=== PATIENT | female | born 1940 | race Caucasian/White ===

== ENCOUNTER 2019-06-09 20:27 | Emergency (ER) | payer OTHER ==
[2019-06-09] MEDS ORDERED: IBUPROFEN 200 MG TAB PO ONE (22:35)
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
[2019-06-10 00:52] VITALS: BP 182/65; TEMP 97.9; O2SAT 98
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
== END 2019-06-09 23:28 | disposition home or self-care (01) ==
LOC: ER 20:27
DX: S16.1XXA Strain of muscle, fascia and tendon at neck level, initial encounter (principal); S20.211A Contusion of right front wall of thorax, initial encounter; V49.9XXA Car occupant (driver) (passenger) injured in unspecified traffic accident, initial encounter
CPT/HCPCS: 71250; 72125; 99283

== ENCOUNTER 2019-07-23 03:01 | Emergency (ER) | payer OTHER ==
[2019-07-23 03:52] LABS: Absolute Lymphocytes (CBC) 1.3 K/uL (0.7-4.9); Basophils % 0.9 % (0-1.3); Lymphocytes % 23.3 % (15.3-44.8); MPV 8.8 fL (7.6-11.3); RBC Red Blood Cell Count 4.16 M/uL (3.86-4.86)
[2019-07-23 04:08] LABS: BUN Blood Urea Nitrogen 24 mg/dL (7-18); Bicarbonate 27 mmol/L (21-32); Glucose Level 111 mg/dL (74-106); Sodium Level 144 mmol/L (136-145); Troponin (Emerg Dept Use Only) < 0.02 ng/mL (0.0-0.045)
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
--- NOTE | 2019-07-23 04:52 | EDPHYS ---
Physician Documentation [facility] Name: Gregoria Elizabeth Age: 79 yrs Sex: Female : 1940 Arrival Date: 07/23/2019 Time: 03:03 Bed 16 Private MD: ED Physician Wilner Galeano HPI: 07/23 04:41 This 79 yrs old Female presents to ER via EMS with complaints of Irregular gs Pulse. 04:41 The patient presents with a history of irregular heart beat, heart racing. Context: The gs symptoms occur at rest. Onset: The symptoms/episode began/occurred acutely, just prior to arrival. Duration: The patient or guardian reports a single episode, that is now resolved, that lasted 10 minute(s). Modifying factors: The symptoms are aggravated by nothing. The symptoms are alleviated by nothing. Associated signs and symptoms: Pertinent negatives: chest pain, SOB, syncope. Severity of symptoms: At their worst the symptoms were severe in the emergency department the symptoms have resolved. The patient has experienced similar episodes in the past, a few times. Historical: - Allergies: 03:44 Haldol; aa1 - Home Meds: 03:44 losartan 50 mg oral tab [Active]; Metoprolol Tartrate Oral [Active]; Xarelto oral oral aa1 [Active]; doxazosin oral oral [Active]; - PMHx: 03:44 High Cholesterol; Hypertension; Atrial Fib; aa1 - PSHx: 03:44 Appendectomy; Hysterectomy; aa1 - Immunization history:: Flu vaccine is not up to date. . - Social history:: Smoking status: Patient/guardian denies using tobacco. - Ebola Screening: : No symptoms or risks identified at this time. ROS: 04:41 All other systems are negative. gs Exam: 04:41 Head/Face: Normocephalic, atraumatic. Eyes: Pupils equal round and reactive to light, gs extra-ocular motions intact. Lids and lashes normal. Conjunctiva and sclera are non-icteric and not injected. Cornea within normal limits. Periorbital areas with no swelling, redness, or edema. ENT: Nares patent. No nasal discharge, no septal abnormalities noted. Tympanic membranes are normal and external auditory canals are clear. Oropharynx with no redness, swelling, or masses, exudates, or evidence of obstruction, uvula midline. Mucous membranes moist. Neck: Trachea midline, no thyromegaly or masses palpated, and no cervical lymphadenopathy. Supple, full range of motion without nuchal rigidity, or vertebral point tenderness. No Meningismus. Chest/axilla: Normal chest wall appearance and motion. Nontender with no deformity. No lesions are appreciated. Cardiovascular: Regular rate and rhythm with a normal S1 and S2. No gallops, murmurs, or rubs. Normal PMI, no JVD. No pulse deficits. Respiratory: Lungs have equal breath sounds bilaterally, clear to auscultation and percussion. No rales, rhonchi or wheezes noted. No increased work of breathing, no retractions or nasal flaring. Abdomen/GI: Soft, non-tender, with normal bowel sounds. No distension or tympany. No guarding or rebound. No evidence of tenderness throughout. Back: No spinal tenderness. No costovertebral tenderness. Full range of motion. Skin: Warm, dry with normal turgor. Normal color with no rashes, no lesions, and no evidence of cellulitis. MS/ Extremity: Pulses equal, no cyanosis. Neurovascular intact. Full, normal range of motion. Neuro: Awake and alert, GCS 15, oriented to person, place, time, and situation. Cranial nerves II-XII grossly intact. Motor strength 5/5 in all extremities. Sensory grossly intact. Cerebellar exam normal. Normal gait. 04:41 Constitutional: The patient appears alert, awake. 04:41 ECG was reviewed by the Attending Physician. Vital Signs: 03:05 BP 153 / 73; Pulse 81; Resp 18; Temp 98.2(O); Pulse Ox 100% on R/A; Weight 121.11 kg; aa1 Height 5 ft. 3 in. (160.02 cm); Pain 0/10; 04:00 BP 142 / 65; Pulse 77; Resp 18; Pulse Ox 98% on R/A; Pain 0/10; aa1 05:00 BP 130 / 71; Pulse 73; Resp 16; Pulse Ox 98% on R/A; Pain 0/10; aa1 03:05 Body Mass Index 47.30 (121.11 kg, 160.02 cm) aa1 MDM: 03:31 Patient medically screened. 04:41 Differential diagnosis: arrythmia. Data reviewed: vital signs, nurses notes, lab test gs result(s), EKG. 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 Response to treatment: the patient's symptoms have resolved after treatment. 07/23 03:33 Order name: CBC with Diff 07/23 03:33 Order name: Basic Metabolic Panel 07/23 03:33 Order name: Troponin (emerg Dept Use Only) 07/23 03:56 Order name: CBC with Automated Diff; Complete Time: 04:39 EDMS 07/23 04:08 Order name: Basic Metabolic Panel; Complete Time: 04:39 EDMS 07/23 04:08 Order name: Troponin (Emerg Dept Use Only); Complete Time: 04:39 EDMS 07/23 03:33 Order name: EKG - Nurse/Tech; Complete Time: 03:53 gs EC:41 Rate is 58 beats/min. Rhythm is regular. WV interval is normal. QRS interval is normal. gs T waves are Normal. No ST changes noted. Clinical impression: Abnormal EKG without significant change. Interpreted by me. Administered Medications: No medications were administered Disposition: 07/23/19 04:45 Discharged to Home. Impression: Palpitations, Paroxysmal atrial fibrillation. - Condition is Stable. - Discharge Instructions: Atrial Fibrillation, Palpitations. - Medication Reconciliation Form, Thank You Letter, Antibiotic Education, Prescription Opioid Use form. - Follow up: Abimael Leiva MD; When: 2 - 3 days; Reason: Re-evaluation by your physician. Signatures: Dispatcher [employer] Court Samuel RN RN aa1 Wilner Galeano MD MD gs Corrections: (The following items were deleted from the chart) 05:24 04:45 07/23/2019 04:45 Discharged to Home. Impression: Palpitations; Paroxysmal atrial aa1 fibrillation. Condition is Stable. Forms are Medication Reconciliation Form, Thank You Letter, Antibiotic Education, Prescription Opioid Use. Follow up: Abimael Leiva; When: 2 - 3 days; Reason: Re-evaluation by your physician. gs
[2019-07-23 05:39] VITALS: TEMP 98.2
[2019-07-23 05:40] VITALS: O2SAT 98
[2019-07-23 05:41] VITALS: BP 130/71
--- NOTE | 2019-07-25 08:13 | EKG ---
Test Date: 2019-07-23 Test Time: 03:47:21 Receiving Operator: DILAN MEASUREMENT RESULTS: Intervals: Rate: 58 CA: 186 QRSD: 96 QT: 412 QTc: 404 Jane [place]: P: 34 CA: 186 QRS: 28 T: 18 INTERPRETIVE STATEMENTS: Sinus bradycardia Cannot rule out Anterior infarct, age undetermined Abnormal ECG Compared to ECG 11/20/2016 18:01:50 Myocardial infarct finding now present Sinus rhythm no longer present Ventricular premature complex(es) no longer present Electronically Signed On 07-25-19 08:07:46 CDT by Abimael Leiva
== END 2019-07-23 05:24 | disposition home or self-care (01) ==
LOC: ER 03:01
DX: I48.0 Paroxysmal atrial fibrillation (principal); I10 Essential (primary) hypertension; E78.00 Pure hypercholesterolemia, unspecified
CPT/HCPCS: 36415; 80048; 84484; 85025; 93005; 99284

== ENCOUNTER 2019-09-03 11:31 | Emergency (ER) | payer OTHER ==
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
[2019-09-03 14:13] VITALS: TEMP 98.2
[2019-09-03 14:14] VITALS: BP 168/97; O2SAT 100
== END 2019-09-03 13:38 | disposition home or self-care (01) ==
LOC: ER 11:31
DX: S13.4XXA Sprain of ligaments of cervical spine, initial encounter (principal); V49.40XA Driver injured in collision with unspecified motor vehicles in traffic accident, initial encounter; Z79.01 Long term (current) use of anticoagulants; Z88.5 Allergy status to narcotic agent; I10 Essential (primary) hypertension; E78.00 Pure hypercholesterolemia, unspecified; I48.91 Unspecified atrial fibrillation
CPT/HCPCS: 70450; 72125; 99283

== ENCOUNTER 2019-09-17 12:10 | Emergency (ER) | payer OTHER ==
--- NOTE | 2019-09-17 12:43 | EDPHYS ---
Physician Documentation [facility] Name: Gregoria Elizabeth Age: 79 yrs Sex: Female : 1940 Arrival Date: 09/17/2019 Time: 12:12 Bed 14 Private MD: Mac Campbell ED Physician Dixon Morton HPI: 09/17 12:41 This 79 yrs old Female presents to ER via Ambulatory with complaints of Nose jmm Bleed. 12:41 The patient presents with a nose bleed. Onset: The symptoms/episode began/occurred jmm acutely. Modifying factors: The symptoms are alleviated by nothing. the symptoms are aggravated by nothing. This is a 79 year old female with a history of atrial fibrillation, htn that presents to the ED with complaints of nose bleed which occurred spontaneously around 10 am. Nose bleed has now resolved. Patient states having a mild cough over the past week. Denies fever, denies shortness of breath, denies weakness. . Historical: - Allergies: 12:51 Haldol; ch - Home Meds: 12:51 Xarelto Oral [Active]; valsartan-hydrochlorothiazide 160-25 mg Oral tab 1 tab once ch daily [Active]; Metoprolol Tartrate Oral [Active]; losartan 50 mg Oral tab [Active]; levothyroxine 50 mcg tab 1 tab once daily [Active]; hydrochlorothiazide 25 mg Oral tab 1 tab for as needed for edema [Active]; doxazosin Oral [Active]; - PMHx: 12:51 Atrial Fib; High Cholesterol; Hypertension; ch - PSHx: 12:51 Hysterectomy; ch - Immunization history:: Adult Immunizations up to date. - Social history:: Smoking status: Patient/guardian denies using tobacco. - Ebola Screening: : Patient negative for fever greater than or equal to 101.5 degrees Fahrenheit, and additional compatible Ebola Virus Disease symptoms Patient denies exposure to infectious person Patient denies travel to an Ebola-affected area in the 21 days before illness onset No symptoms or risks identified at this time. ROS: 12:41 Constitutional: Negative for fever, chills, and weight loss. jmm 12:41 Neck: Negative for injury, pain, and swelling, Cardiovascular: Negative for chest pain, palpitations, and edema, Respiratory: Negative for shortness of breath, cough, wheezing, and pleuritic chest pain, Abdomen/GI: Negative for abdominal pain, nausea, vomiting, diarrhea, and constipation, Neuro: Negative for headache, weakness, numbness, tingling, and seizure. 12:41 ENT: Positive for nose bleed. 12:41 All other systems are negative. Exam: 12:41 Constitutional: This is a well developed, well nourished patient who is awake, alert, jmm and in no acute distress. Head/Face: atraumatic. Eyes: EOMI, no conjunctival erythema appreciated 12:41 Neck: Trachea midline, Supple Chest/axilla: Normal chest wall appearance and motion. Cardiovascular: Regular rate and rhythm. No edema appreciated Respiratory: Normal respirations, no respiratory distress appreciated Abdomen/GI: Non distended, soft Back: Normal ROM Skin: General appearance color normal MS/ Extremity: Moves all extremities, no obvious deformities appreciated, no edema noted to the lower extremities Neuro: Awake and alert, normal gait Psych: Behavior is normal, Mood is normal, Patient is cooperative and pleasant 12:41 ENT: Nose: Nasal mucosa: Dried blood. Examination of the other nostril shows no obvious abnormality, Posterior pharynx: is normal, no blood. Vital Signs: 12:51 BP 174 / 78; Pulse 84; Resp 16; Temp 98.8; Pulse Ox 99% on R/A; Pain 0/10; ch 13:17 BP 168 / 84; Pulse 72; Resp 16; Temp 98.8; Pulse Ox 99% on R/A; Pain 0/10; ch MDM: 12:41 Patient medically screened. [facility] 12:41 Data reviewed: vital signs, nurses notes. Counseling: I had a detailed discussion with [facility] the patient and/or guardian regarding: the historical points, exam findings, and any diagnostic results supporting the discharge/admit diagnosis, the need for outpatient follow up, to return to the emergency department if symptoms worsen or persist or if there are any questions or concerns that arise at home. ED course: Patient given education on nosebleeds. Patient is not taking anticoagulants. Patient given strict return precautions. patient understood and agrees with the plan of care. . Administered Medications: No medications were administered Disposition: 15:08 Co-signature as Attending Physician, Dixon Morton MD I agree with the assessment and kdr plan of care. Disposition: 09/17/19 12:42 Discharged to Home. Impression: Epistaxis. - Condition is Stable. - Discharge Instructions: Nosebleed, Adult. - Prescriptions for Saline Nasal - spray 1 spray by INTRANASAL route every 4-6 hours; 1 bottle. - Medication Reconciliation Form, Thank You Letter, Antibiotic Education, Prescription Opioid Use form. - Follow up: Penelope Wheeler MD; When: 2 - 3 days; Reason: Recheck today's complaints, Continuance of care, Re-evaluation by your physician. Signatures: Sudha Rain, JT RN ch Dixon Morton MD MD [facility] Zion Najera PA PA jmm Corrections: (The following items were deleted from the chart) 13:19 12:42 09/17/2019 12:42 Discharged to Home. Impression: Epistaxis. Condition is Stable. ch Forms are Medication Reconciliation Form, Thank You Letter, Antibiotic Education, Prescription Opioid Use. Follow up: Penelope Wheeler; When: 2 - 3 days; Reason: Recheck today's complaints, Continuance of care, Re-evaluation by your physician. hodan
--- NOTE | 2019-09-17 13:20 | ER ---
Nurse's Notes [facility] Name: Gregoria Elizabeth Age: 79 yrs Sex: Female : 1940 Arrival Date: 09/17/2019 Time: 12:12 Bed 14 Private MD: Mac Campbell Diagnosis: Epistaxis Presentation: 09/17 12:49 Presenting complaint: Patient states: Nose bleed today. its stopped now. Transition of care: patient was not received from another setting of care. Onset of symptoms. Risk Assessment: Do you want to hurt yourself or someone else? Patient reports no desire to harm self or others. Initial Sepsis Screen: Does the patient meet any 2 criteria? No. Patient's initial sepsis screen is negative. Does the patient have a suspected source of infection? No. Patient's initial sepsis screen is negative. Care prior to arrival: None. 12:49 Method Of Arrival: Ambulatory 12:49 Acuity: EMANUEL 5 Triage Assessment: 12:51 General: Appears in no apparent distress. comfortable, Behavior is calm, cooperative, ch appropriate for age. Pain: Denies pain. EENT: Nares are clear. Neuro: No deficits noted. Respiratory: No deficits noted. Historical: - Allergies: 12:51 Haldol; - Home Meds: 12:51 Xarelto Oral [Active]; valsartan-hydrochlorothiazide 160-25 mg Oral tab 1 tab once ch daily [Active]; Metoprolol Tartrate Oral [Active]; losartan 50 mg Oral tab [Active]; levothyroxine 50 mcg tab 1 tab once daily [Active]; hydrochlorothiazide 25 mg Oral tab 1 tab for as needed for edema [Active]; doxazosin Oral [Active]; - PMHx: 12:51 Atrial Fib; High Cholesterol; Hypertension; - PSHx: 12:51 Hysterectomy; - Immunization history:: Adult Immunizations up to date. - Social history:: Smoking status: Patient/guardian denies using tobacco. - Ebola Screening: : Patient negative for fever greater than or equal to 101.5 degrees Fahrenheit, and additional compatible Ebola Virus Disease symptoms Patient denies exposure to infectious person Patient denies travel to an Ebola-affected area in the 21 days before illness onset No symptoms or risks identified at this time. Screenin:53 Abuse screen: Denies threats or abuse. Denies injuries from another. Nutritional ch screening: No deficits noted. Tuberculosis screening: No symptoms or risk factors identified. Fall Risk None identified. Assessment: 12:53 Reassessment: Patient appears in no apparent distress at this time. No changes from previously documented assessment. Patient and/or family updated on plan of care and expected duration. Pain level reassessed. Patient is alert, oriented x 3, equal unlabored respirations, skin warm/dry/pink. Zion in room to discuss plan of care again with pt and family. 13:17 Reassessment: Patient appears in no apparent distress at this time. Patient and/or ch family updated on plan of care and expected duration. Pain level reassessed. Patient is alert, oriented x 3, equal unlabored respirations, skin warm/dry/pink. Reassessment: Zion has extensively gone over plan of care and dx with pt and family due to husbands concerns. pt to be discharged now. General: Appears in no apparent distress. comfortable, Behavior is calm, cooperative, appropriate for age. Pain: Denies pain. Vital Signs: 12:51 BP 174 / 78; Pulse 84; Resp 16; Temp 98.8; Pulse Ox 99% on R/A; Pain 0/10; ch 13:17 BP 168 / 84; Pulse 72; Resp 16; Temp 98.8; Pulse Ox 99% on R/A; Pain 0/10; ch ED Course: 12:12 Patient arrived in ED. ag5 12:13 Mac Campbell DO is Private Physician. [facility] 12:25 Zion Najera PA is PHCP. [facility] 12:25 Dixon Morton MD is Attending Physician. [facility] 12:30 Arm band placed on left wrist. Patient placed in an exam room, on a stretcher, on pulse ch oximetry. 12:42 Penelope Wheeler MD is Referral Physician. [facility] 12:49 Sudha Rain, JT is Primary Nurse. 12:50 Triage completed. 12:53 No apparent distress. Resting quietly. ch 12:53 Patient has correct armband on for positive identification. Bed in low position. Call light in reach. Side rails up X 1. 12:53 No provider procedures requiring assistance completed. Patient did not have IV access ch during this emergency room visit. Administered Medications: No medications were administered Outcome: 12:42 Discharge ordered by . hodan 13:17 Discharged to home via wheelchair, with family. 13:17 Condition: stable 13:17 Discharge instructions given to patient, family, Instructed on discharge instructions, follow up and referral plans. medication usage, Demonstrated understanding of instructions, follow-up care, medications, Prescriptions given X 1. 13:19 Patient left the ED. Signatures: Sudha Rain RN RN Zion Najera PA PA jmm Gaskin, Ajare ag5
[2019-09-17 13:24] VITALS: TEMP 98.8; O2SAT 99
[2019-09-17 13:26] VITALS: BP 168/84
== END 2019-09-17 13:19 | disposition home or self-care (01) ==
LOC: ER 12:10
DX: R04.0 Epistaxis (principal); I10 Essential (primary) hypertension; I48.91 Unspecified atrial fibrillation; E78.00 Pure hypercholesterolemia, unspecified; Z79.01 Long term (current) use of anticoagulants; Z88.5 Allergy status to narcotic agent
CPT/HCPCS: 99283

== ENCOUNTER 2023-08-14 11:48 | Observation (INO) | payer OTHER ==
--- OUTSIDE RECORDS SUMMARY | 2023-08-14 11:50 | XMS REPORT | Continuity of Care Document ---
:1940 Author Organization [facility] t Address [address] [place] [address] [place] [id number] Care Team Providers Name Role Phone Marianela Acevedo Attending Clinician Unavailable Edilia Estrella Attending Clinician Unavailable Problems This patient has no known problems. Allergies, Adverse Reactions, Alerts This patient has no known allergies or adverse reactions. Medications This patient has no known medications. Procedures This patient has no known procedures. Encounters Start End Encounter Admission Attending Care Care Encounter Source Date/Time Date/Time Type Type Clinicians Facility Department ID 2023-04-03 Outpatient Curtis, STLMLC STLC [id number] Common 15:35:00 Marianela [id number] [facility] 2022-08-01 Outpatient Curtis, STZEVLC STLC [id number] Common 10:24:00 Marianela [facility] 2022-07-04 Outpatient Curtis, STLMLC STLMLC [id number] Common 13:24:00 Marianela [facility] 2021-12-19 Outpatient Curtis, STZEVLC STLMLC [id number] Common 14:31:50 Marianela [facility] 2021-12-19 Outpatient Curtis, STZEVLC STLMLC [id number] Common 12:17:18 Marianela [id number] [facility] 2021-12-19 Outpatient STZEVLC STLMLC [id number] Common 12:17:12 [id number] [facility] 2021-12-19 Outpatient Sameer, STZEVLC STLMLC [id number] Common 11:58:09 Edilia [id number] [facility] 2021-12-19 Outpatient Sameer, STLMLC STLC [id number] Common 11:57:42 Edilia [id number] [facility] 2021-12-19 Outpatient Sameer [facility] [id number] Common 11:32:51 Edilia [id number] [facility] 2021-12-19 Outpatient Sameer [facility] [id number] Common 11:12:38 Edilia [id number] [facility] 2021-12-19 Outpatient Sameer [facility] [id number] Common 11:10:10 Edilia [id number] [facility] Results This patient has no known results.
[2023-08-14 12:24] LABS: Absolute Lymphocytes (CBC) 1.3 K/uL (0.7-4.9); Hematocrit 37.5 % (36.0-45.0); Lymphocytes % 15.6 % (15.3-44.8); MCV 84.2 fL (80-100); MPV 7.9 fL (7.6-11.3); Platelets 189 thou/uL (152-406); RBC Red Blood Cell Count 4.45 M/uL (3.86-4.86)
--- NOTE | 2023-08-14 12:43 | RAD REPORT ---
[facility] CLINICAL HISTORY: PALPITATIONS COMPARISON: Chest Single View dated 11/20/2016; CHEST SINGLE VIEW dated 02/23/2015; CHEST SINGLE VIEW dated 03/25/2013; CHEST PA AND LAT 2 VIEW dated 09/21/2012 TECHNIQUE: Portable AP view of the chest. FINDINGS: Stable interstitial prominence suggests mild central congestion/CHF. Stable atelectasis ve rsus mild airspace opacification in the left lung base. No pneumothorax or effusion. Mild cardiomega ly. Mediastinal contours are unremarkable. IMPRESSION: Stable findings, as above.
[2023-08-14 12:46] LABS: AST/SGOT 10 U/L (15-37); BUN Blood Urea Nitrogen 19 mg/dL (7-18); Bicarbonate 25 mEq/L (21-32); Glomerular Filtration Rate 63 ml/min (=/>90); Glucose Level 106 mg/dL (74-106); Potassium 3.5 mEq/L (3.5-5.1); Sodium Level 141 mEq/L (136-145)
[2023-08-14 12:47] LABS: ALT/SGPT 16 U/L (13-56); Albumin 3.1 g/dL (3.4-5.0); Alkaline Phosphatase 132 U/L (45-117); Bilirubin Total 0.3 mg/dL (0.2-1.0); Magnesium 2.2 mg/dL (1.6-2.4); NT PRO-BNP 1395 pg/mL (<450); Protein, Total 7.4 g/dL (6.4-8.2); Troponin High Sensitivity 57.9 pg/mL (<58.9)
[2023-08-14 13:10] LABS: Bilirubin Direct < 0.1 mg/dL (0-0.2); Bilirubin Indirect, Calculated ND mg/dL (0.2-0.8)
[2023-08-14] MEDS ORDERED: METOPROLOL TARTRATE 5 MG/5 ML INJ IV ONE (13:25)
--- NOTE | 2023-08-14 15:04 | EDPHYS ---
Physician Documentation [facility] Name: Gregoria Elizabeth Age: 83 yrs Sex: Female : 1940 Arrival Date: 08/14/2023 Time: 11:48 Bed 11 Private MD: ED Physician Evgeny Jung HPI: 08/14 12:10 This 83 yrs old Female presents to ER via Unassigned with complaints of Palpitations. rt 12:10 Patient presents to the ED with palpitations. Noticed heart racing. Patient first rt noticed this when she went up to go to the bathroom at about 3 AM noting her heart was about 120s. EMS was called in the morning, was found to have heart rate in 150s to 170s, reportedly A-fib with RVR. She was given 30 mg of Cardizem which improved her heart rate. She is asymptomatic currently. Denies any chest pain. Denies any previous history of A-fib. Symptoms are moderate severity, no other aggravating or admitting factors.. Historical: - Allergies: 12:26 Haldol; hb - Home Meds: 12:26 Xarelto Oral [Active]; hydrochlorothiazide 25 mg Oral tab 1 tab for as needed for edema hb [Active]; levothyroxine 50 mcg tab 1 tab once daily [Active]; doxazosin Oral [Active]; losartan 50 mg Oral tab [Active]; Metoprolol Tartrate Oral [Active]; valsartan-hydrochlorothiazide 160-25 mg Oral tab 1 tab once daily [Active]; - PMHx: 12:26 Atrial Fib; High Cholesterol; Hypertension; hb - Immunization history:: Adult Immunizations up to date. - Social history:: Smoking status: Patient denies any tobacco usage or history of. ROS: 12:10 Constitutional: Negative for fever, chills, and weight loss, Respiratory: Negative for rt shortness of breath, cough, wheezing, and pleuritic chest pain, Abdomen/GI: Negative for abdominal pain, nausea, vomiting, diarrhea, and constipation, MS/Extremity: Negative for injury and deformity, Skin: Negative for injury, rash, and discoloration, Neuro: Negative for headache, weakness, numbness, tingling, and seizure, Psych: Negative for depression, anxiety, suicide ideation, homicidal ideation, and hallucinations, 12:10 Cardiovascular: Positive for palpitations, Negative for chest pain, Exam: 12:12 Constitutional: This is a well developed, well nourished patient who is awake, alert, rt and in no acute distress. Head/Face: Normocephalic, atraumatic. Chest/axilla: Normal chest wall appearance and motion. Nontender with no deformity. No lesions are appreciated. Cardiovascular: Regular rate and rhythm with a normal S1 and S2. No gallops, murmurs, or rubs. Normal PMI, no JVD. No pulse deficits. Respiratory: Lungs have equal breath sounds bilaterally, clear to auscultation and percussion. No rales, rhonchi or wheezes noted. No increased work of breathing, no retractions or nasal flaring. Abdomen/GI: Soft, non-tender, with normal bowel sounds. No distension or tympany. No guarding or rebound. No evidence of tenderness throughout. Skin: Warm, dry with normal turgor. Normal color with no rashes, no lesions, and no evidence of cellulitis. MS/ Extremity: Pulses equal, no cyanosis. Neurovascular intact. Full, normal range of motion. Neuro: Awake and alert, GCS 15, oriented to person, place, time, and situation. Cranial nerves II-XII grossly intact. Motor strength 5/5 in all extremities. Sensory grossly intact. Cerebellar exam normal. Normal gait. Psych: Awake, alert, with orientation to person, place and time. Behavior, mood, and affect are within normal limits. 12:25 ECG was reviewed by the Attending Physician. rt Vital Signs: 12:09 BP 134 / 68; Pulse 114; Resp 17; Temp 98.3; Pulse Ox 97% on R/A; Weight 124.74 kg; hb Height 5 ft. 2 in. ; Pain 0/10; 12:48 BP 138 / 80; Pulse 123; Resp 22; Pulse Ox 98% on R/A; hb 13:15 BP 121 / 73; Pulse 110; Resp 18 S; Pulse Ox 99% on R/A; aa5 13:25 BP 118 / 79; Pulse 100; Resp 20 S; Pulse Ox 98% on R/A; aa5 13:47 BP 124 / 60; Pulse 84; Resp 19; Pulse Ox 99% on R/A; hb 14:27 BP 128 / 99; Pulse 94; Resp 20; Pulse Ox 99% on R/A; hb 14:34 BP 170 / 71; Pulse 47; Resp 16; Pulse Ox 98% on R/A; hb 17:05 BP 135 / 86; Pulse 63; Resp 18; Pulse Ox 98% on R/A; cm10 12:09 Body Mass Index 50.30 (124.74 kg, 157.48 cm) hb 12:09 Pain Scale: Adult hb MDM: 11:53 Patient medically screened. rt 15:04 Differential Diagnosis A-fib, dysrhythmia, electrolyte disturbance. Data reviewed: rt vital signs, nurses notes, lab test result(s), EKG, radiologic studies. Consideration of Admission/Observation Patient was admitted/placed on observation. 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 I considered the following discharge prescriptions or medication management in the emergency department Medications were administered in the Emergency Department. See MAR. Independent interpretation of the following test(s) in the Emergency Department X-Ray: My interpretation is No consolidations in interpretation of the x-ray images. Care significantly affected by the following chronic conditions: Hypertension. Counseling: I had a detailed discussion with the patient and/or guardian regarding the historical points, exam findings, and any diagnostic results supporting the discharge/admit diagnosis, lab results, radiology results, the need for further work-up and treatment in the hospital. Response to treatment: the patient's symptoms have markedly improved after treatment. 08/14 11:53 Order name: Basic Metabolic Panel; Complete Time: 13:11 rt 08/14 11:53 Order name: CBC with Diff; Complete Time: 12:50 rt 08/14 11:53 Order name: LFT's; Complete Time: 13:11 rt 08/14 11:53 Order name: Magnesium; Complete Time: 13:11 rt 08/14 11:53 Order name: NT PRO-BNP; Complete Time: 13:11 rt 08/14 11:53 Order name: Troponin HS; Complete Time: 13:11 rt 08/14 15:09 Order name: Urinalysis w/ reflexes EDMS 08/14 11:53 Order name: XRAY Chest (1 view); Complete Time: 12:50 rt 08/14 11:53 Order name: EKG; Complete Time: 11:54 rt 08/14 11:53 Order name: Cardiac monitoring; Complete Time: 12:23 rt 08/14 11:53 Order name: EKG - Nurse/Tech; Complete Time: 12: rt 08/14 11:53 Order name: IV Saline Lock; Complete Time: : rt 08/14 11:53 Order name: Labs collected and sent; Complete Time: rt 08/14 11:53 Order name: O2 Per Protocol; Complete Time: rt 08/14 11:53 Order name: O2 Sat Monitoring; Complete Time: 12: rt EC: Rate is 100 beats/min. Rhythm is irregularly irregular, A fib with Unifocal PVCs, rt Nonspecific ST-T wave changes. QRS interval is normal. QT interval is normal. No Q waves. Administered Medications: 13:15 Drug: Metoprolol IVP 5 mg IVP every 5 minutes; Hold for SBP < 100 or HR < 60. x3 Route: aa5 IVP; Site: right wrist; 13:25 Drug: Metoprolol IVP 5 mg IVP every 5 minutes; Hold for SBP < 100 or HR < 60. x3 Route: aa5 IVP; Site: right wrist; Disposition Summary: 08/14/23 15:03 Hospitalization Ordered Notes: Hospitalization Status: Observation rt Provider: Jassi Olivarez rt Location: Telemetry/MedSurg (observation) rt Condition: Stable rt Problem: new rt Symptoms: have improved rt Bed/Room Type: Standard rt Room Assignment: 426(08/14/23 16:53) ll1 Diagnosis - New onset A-fib with RVR rt Forms: - Medication Reconciliation Form rt - SBAR form rt - Leadership Thank You Letter rt Signatures: Dispatcher [employer] Radha Galaviz RN RN aa5 Janki Manzanares RN RN hb Lewis, Lynsay, RN RN ll1 Evgeny Jung MD MD rt Corrections: (The following items were deleted from the chart) 12:28 12:26 Allergies: haloperidol lactate; hb hb 16:53 15:03 rt ll1
--- NOTE | 2023-08-14 15:04 | ER ---
Nurse's Notes [facility] Name: Gregoria Elizabeth Age: 83 yrs Sex: Female : 1940 Arrival Date: 08/14/2023 Time: 11:48 Bed 11 Private MD: Diagnosis: New onset A-fib with RVR Presentation: 08/14 12:09 Chief complaint: EMS states: palpitations that started last night while ambulating to the bathroom. On scene 12 lead showed A Fib w/ RVR 130s-170s, 110s after Cardizem 30 mg IVP to 18G RFA. Coronavirus screen: At this time, the client does not indicate any symptoms associated with coronavirus-19. Ebola Screen: No symptoms or risks identified at this time. Initial Sepsis Screen: Does the patient meet any 2 criteria? No. Patient's initial sepsis screen is negative. Does the patient have a suspected source of infection? No. Patient's initial sepsis screen is negative. Risk Assessment: Do you want to hurt yourself or someone else? Patient reports no desire to harm self or others. Onset of symptoms was August 14, 2023. 12:09 Method Of Arrival: EMS: [facility] 12:09 Acuity: EMANUEL 3 hb Historical: - Allergies: 12:26 Haldol; hb - Home Meds: 12:26 Xarelto Oral [Active]; hydrochlorothiazide 25 mg Oral tab 1 tab for as needed for edema hb [Active]; levothyroxine 50 mcg tab 1 tab once daily [Active]; doxazosin Oral [Active]; losartan 50 mg Oral tab [Active]; Metoprolol Tartrate Oral [Active]; valsartan-hydrochlorothiazide 160-25 mg Oral tab 1 tab once daily [Active]; - PMHx: 12:26 Atrial Fib; High Cholesterol; Hypertension; hb - Immunization history:: Adult Immunizations up to date. - Social history:: Smoking status: Patient denies any tobacco usage or history of. Screenin:28 [facility] ED Fall Risk Assessment (Adult) Score/Fall Risk Level 3 or more points = High hb Risk Oriented to surroundings, Maintained a safe environment, Educated pt \T\ family on fall prevention, incl call for assistance when getting out of bed, Assessed \T\ reinforced patient's understanding of fall precautions, Provided non-skid footwear. Abuse screen: Denies threats or abuse. Denies injuries from another. Nutritional screening: No deficits noted. Tuberculosis screening: No symptoms or risk factors identified. Assessment: 12:28 General: Appears in no apparent distress. Behavior is calm, cooperative. Pain: Denies hb pain. Neuro: Level of Consciousness is awake, alert, obeys commands, Oriented to person, place, time, situation. Cardiovascular: Patient's skin is warm and dry. Rhythm is atrial fibrillation with rapid ventricular response. Respiratory: Respiratory effort is even, unlabored, Respiratory pattern is regular, symmetrical. GI: No signs and/or symptoms were reported involving the gastrointestinal system. : No signs and/or symptoms were reported regarding the genitourinary system. EENT: No signs and/or symptoms were reported regarding the EENT system. Derm: Skin is pink, warm \T\ dry. Musculoskeletal: No signs and/or symptoms reported regarding the musculoskeletal system. 13:21 Reassessment: Patient appears in no apparent distress at this time. Patient and/or hb family updated on plan of care and expected duration. Pain level reassessed. Patient is alert, oriented x 3, equal unlabored respirations, skin warm/dry/pink. 14:27 Reassessment: Patient appears in no apparent distress at this time. Patient and/or hb family updated on plan of care and expected duration. Pain level reassessed. Patient is alert, oriented x 3, equal unlabored respirations, skin warm/dry/pink. 16:04 Reassessment: No changes from previously documented assessment. Patient and/or family ll1 updated on plan of care and expected duration. Pain level reassessed. Vital Signs: 12:09 BP 134 / 68; Pulse 114; Resp 17; Temp 98.3; Pulse Ox 97% on R/A; Weight 124.74 kg; hb Height 5 ft. 2 in. ; Pain 0/10; 12:48 BP 138 / 80; Pulse 123; Resp 22; Pulse Ox 98% on R/A; hb 13:15 BP 121 / 73; Pulse 110; Resp 18 S; Pulse Ox 99% on R/A; aa5 13:25 BP 118 / 79; Pulse 100; Resp 20 S; Pulse Ox 98% on R/A; aa5 13:47 BP 124 / 60; Pulse 84; Resp 19; Pulse Ox 99% on R/A; hb 14:27 BP 128 / 99; Pulse 94; Resp 20; Pulse Ox 99% on R/A; hb 14:34 BP 170 / 71; Pulse 47; Resp 16; Pulse Ox 98% on R/A; hb 17:05 BP 135 / 86; Pulse 63; Resp 18; Pulse Ox 98% on R/A; cm10 12:09 Body Mass Index 50.30 (124.74 kg, 157.48 cm) hb 12:09 Pain Scale: Adult hb ED Course: 11:50 Patient arrived in ED. aa5 11:53 Evgeny Jung MD is Attending Physician. rt 12:20 Maintain EMS IV. Dressing intact. Good blood return noted. Site clean \T\ dry. Gauge \T\ hb site: 18g RFA. 12:26 Triage completed. hb 12:28 Arm band placed on. hb 12:29 Patient has correct armband on for positive identification. Provided Education on: hb Tests. 12:30 XRAY Chest (1 view) In Process Unspecified. EDMS 12:48 Janki Manzanares, JT is Primary Nurse. hb 15:03 Jassi Olivarez MD is Hospitalizing Provider. rt 17:00 No provider procedures requiring assistance completed. Patient admitted, IV remains in cm10 place. Administered Medications: 13:15 Drug: Metoprolol IVP 5 mg IVP every 5 minutes; Hold for SBP < 100 or HR < 60. x3 Route: aa5 IVP; Site: right wrist; 13:25 Drug: Metoprolol IVP 5 mg IVP every 5 minutes; Hold for SBP < 100 or HR < 60. x3 Route: aa5 IVP; Site: right wrist; Medication: 12:28 VIS not applicable for this client. hb Outcome: 15:03 Decision to Hospitalize by Provider. rt 17:00 Admitted to Med/surg accompanied by tech, via stretcher, room 426, Report called to shon Villegas RN 17:00 Condition: good 17:00 Instructed on the need for admit, 17:27 Patient left the ED. cm10 Signatures: Dispatcher [employer] EDMS Radha Haq RN RN aa5 Janki Manzanares RN RN Ting Cooley RN RN [facility] Evgeny Jung MD MD rt Angle Mejia RN RN 10 Corrections: (The following items were deleted from the chart) 12:28 12:26 Allergies: haloperidol lactate; hb hb
--- NOTE | 2023-08-14 15:25 | P.HP ---
Certification for Inpatient Patient admitted to: Inpatient With expected LOS: <2 Midnights Patient will require the following post-hospital care: None Practitioner: I am a practitioner with admitting privileges, knowledge of patient current condition, hospital course, and medical plan of care. Services: Services provided to patient in accordance with Admission requirements found in Title 42 Section 412.3 of the Code of Federal Regulations Patient History Date of Service: 08/14/23 Reason for admission: A-fib RVR, hypertension, sleep apnea History of Present Illness: This is a 83-year-old female with medical history of hypertension, sleep apnea, hypothyroidism hyperlipidemia presented to the ER with complaints of palpitation. Patient reports that she felt her heart is racing since last night denies chest pain, shortness of breath. She reports that she noticed her heart rate was 120s in the middle of the night. She called the EMS as she found her heart rate at 170s. Patient is asymptomatic at this time, patient denied previous history of A-fib RVR but reports that she felt irregular heartbeats before but not taken any treatments. ED course: Vital signs blood pressure 134/68, pulse 114, respirations 17, temperature 98.3, pulse ox 97% on room air. Heart rate irregularly irregular A-fib with nonspecific STT wave changes. QRS interval is normal. QT interval is normal. No Q waves. Lab report significant for BUN 19 BNP 1395. Chest x-ray shows mild cardiomegaly, mild central congestion/CHF. Stable atelectasis versus mild airspace opacification in the left lung base. General Partner informed. Planning to admit the patient with a diagnosis of A-fib RVR. Allergies haloperidol lactate [From Haldol] Adverse Reaction (Severe, Verified 02/23/13 10:22) PSYCHOSIS/BLINDNESS Home Medications: Valsartan 160 mg PO BID #60 tablet 11/21/16 Doxazosin [Cardura*] 4 mg PO BEDTIME 08/14/23 Metoprolol Tartrate 50 mg PO DAILY 08/14/23 - Past Medical/Surgical History Diabetic: No -: hyperlipidemia -: PVC -: allergies/hay fever -: pneumonia -: lymphedema -: GERD -: HTN -: Arthritis -: Anxiety -: Hysterectomy -: Kidney stent - Family History Father -: Heart disease Mother -: Heart disease, Diabetes Notes: from Alzheimers - Social History Alcohol use: Yes CD- Drugs: No Caffeine use: Yes Review of Systems 10-point ROS is otherwise unremarkable (Denies fever chills weakness) ENT: Unremarkable (Sleep apnea) Respiratory: SOB with Excertion, Other (Sleep apnea do not use CPAP) Cardiovascular: Palpitations (Since last night), Other Gastrointestinal: Other (Denies nausea vomiting abdominal pain diarrhea) Physical Examination - Physical Exam General: Alert, Oriented x3, Cooperative, Mild distress (Reporting feeling uncomfortable) HEENT: Atraumatic, Normocephalic, PERRLA Neck: Supple, 2+ carotid pulse no bruit, JVD not distended Respiratory: Clear to auscultation bilaterally, Diminished (At the bases) Cardiovascular: No edema, Irregular heart rate/rhythm (Heart rate 40 to 50/min) Capillary refill: Brisk Gastrointestinal: Normal bowel sounds, Hypoactive, Soft and benign, Non- distended Musculoskeletal: No clubbing, No swelling, No contractures, No erythema, No tenderness, No warmth Integumentary: No breakdown, No significant lesion, No erythema, No warmth Neurological: Normal gait, Normal speech, Normal strength at 5/5 x4 extr, Normal tone - Studies Laboratory Data (last 24 hrs) 08/14/23 08/14/23 12:18 12:18 WBC 8.40 Hgb 12.3 Hct 37.5 Plt Count 189 Sodium 141 Potassium 3.5 BUN 19 H Creatinine 0.92 Glucose 106 Magnesium 2.2 Total Bilirubin 0.3 AST 10 L ALT 16 Alkaline Phosphatase 132 H Assessment and Plan - Plan Assessment and plan A-fib RVR new onset: Acute, Sleep apnea Hypertension Hypothyroid Hyperlipidemia Assessment and plan A-fib RVR new onset * Acute, patient comes in with complaints of palpitations started last night heart rate went up to 170s, EMS given Cardizem. Patient's heart rate runs between 40-50 still in A-fib. * General Partner Michael referred * Admit the patient to to telemetry * Electrolytes replacement as per protocol Sleep apnea * Chronic, admit the patient to ICU. Okay CPAP at bedtime * Discussed importance of management of sleep apnea Hypertension * Chronic controlled on current medication * Resume home medications Hypothyroid * Chronic on levothyroxine * Resume the current medications, check TSH in the morning Hyperlipidemia * Chronic, controlled current medication * Resume home medications * Check lipid panel in the morning CODE STATUS full code DVT prophylaxis; SCDs Diet heart healthy Discharge Plan: Home Plan to discharge in: 48 Hours - Advance Directives Does patient have a Living Will: No Does patient have a Durable POA for Healthcare: No - Code Status/Comfort Care Code Status Assessed: Yes (Full code) Code Status: Full Code Physician Review: Patient Assessed, Agree with Above Assessment and Plan Critical Care: Yes
[2023-08-14] MEDS ORDERED: ACETAMINOPHEN 500 MG TAB PO PRN (17:32)
[2023-08-14] MEDS ORDERED: ONDANSETRON 4 MG/2 ML VIAL IV PRN (17:32)
[2023-08-14 18:49] VITALS: BMI 50.5
[2023-08-14] MEDS: ENOXAPARIN 40 MG/0.4 ML SQ SCH (18:58)
[2023-08-14 20:02] LABS: Thyroid Stimulating Hormone 4.02 uIU/mL (0.358-3.740)
[2023-08-14 20:35] VITALS: O2SAT 95
[2023-08-14 21:19] LABS: Specific Gravity 1.027 (1.005-1.030); Urine Bacteria <20 /HPF (<20); Urine Bilirubin NEGATIVE (Negative); Urine Blood Negative (Negative); Urine Clarity Turbid (Clear); Urine Color Yellow (Yellow); Urine Glucose NEGATIVE (Negative); Urine Mucus Slight /HPF (None Seen); Urine Protein TRACE (Negative); Urine Urobilinogen Normal (Normal)
[2023-08-15 05:15] VITALS: TEMP 98.9
[2023-08-15] MEDS: ENOXAPARIN 40 MG/0.4 ML SQ SCH (08:55)
[2023-08-15 09:11] LABS: Absolute Lymphocytes (CBC) 1.5 K/uL (0.7-4.9); Hematocrit 32.3 % (36.0-45.0); Lymphocytes % 19.5 % (15.3-44.8); MCV 84.2 fL (80-100); MPV 7.9 fL (7.6-11.3); Platelets 177 thou/uL (152-406); RBC Red Blood Cell Count 3.84 M/uL (3.86-4.86)
[2023-08-15 09:38] LABS: Magnesium 2.3 mg/dL (1.6-2.4); Phosphorus 2.4 mg/dL (2.5-4.9); Potassium 3.7 mEq/L (3.5-5.1)
[2023-08-15 12:21] VITALS: BP 153/62
== END 2023-08-15 13:15 | disposition home or self-care (01) ==
LOC: ER 11:48 → INTOOBSV 15:02 → ERHOLD 15:02 → 4TH 17:14
PROVIDERS: ADMIT Hospitalist; ATTEND Hospitalist
DX: I48.91 Unspecified atrial fibrillation (principal); I10 Essential (primary) hypertension; E03.9 Hypothyroidism, unspecified; E78.5 Hyperlipidemia, unspecified; G47.30 Sleep apnea, unspecified; Z88.8 Allergy status to other drugs, medicaments and biological substances
CPT/HCPCS: 85025 ×2; 81001; 80048 ×2; 36415; 83735 ×2; 84100; 80061; 80076; 84443; 84484 ×2; 84439; 83880; 71045; 94760 ×3; 96374; 99285; J1650 ×2; G0378